=== PATIENT | male | born 1970 | race Hispanic/Latino ===

== ENCOUNTER → 2020-10-25 | Outpatient (CLI) | payer OTHER | END | disposition home or self-care (01) | LOC: RAH 13:39 | PROVIDERS: ATTEND Nurse Practitioner Adult Health | DX: Z13.6 Encounter for screening for cardiovascular disorders (principal) | CPT/HCPCS: 75571 ==

== ENCOUNTER 2024-07-08 07:43 | Day surgery (SDC) | payer OTHER ==
[2024-07-08] VITALS (10 sets, daily range): BP systolic 102–131; BP diastolic 68–88; PULSE 63–89; RESP 14–22; TEMP 97–98.1
[~2024-07-08] VITALS: Ht 177.8 cm; Wt 86.2 kg
[2024-07-08] MEDS: 0.9%NACL 1000ML 1,000 ML IV ONE (10:04)
[2024-07-08] MEDS ORDERED: proPOFol 10 MG/ML 20ML VIAL IV ONE ×2 (10:41→11:04)
== END 2024-07-08 12:25 | disposition home or self-care (01) ==
LOC: DAH 07:43 → ENDO 07:43
PROVIDERS: ATTEND Internal Medicine Gastroenterology
DX: R93.3 Abnormal findings on diagnostic imaging of other parts of digestive tract (principal); K31.89 Other diseases of stomach and duodenum; K92.9 Disease of digestive system, unspecified; R19.4 Change in bowel habit; K92.2 Gastrointestinal hemorrhage, unspecified; D69.8 Other specified hemorrhagic conditions; Z79.899 Other long term (current) drug therapy
CPT/HCPCS: 43251; 43237; J7030; J2704 ×2; A4620; A4649; A4215 ×2; A4223; A4222; A4221; A4663; A4606; 43255; J3490